=== PATIENT | female | born 1995 | race Asian ===

== ENCOUNTER 2024-10-09 16:32 | Emergency (ER) | payer OTHER, SELFPAY ==
[2024-10-09 16:49] VITALS: BP 118/71; PULSE 54; RESP 20; TEMP 37; O2SAT 100; BMI 20.6
--- NOTE | 2024-10-09 18:14 | ED.WOUNDLAC ---
HPI - Wound/Laceration General Chief Complaint: Wound/Laceration Stated Complaint: Cut first left digit with knife Time Seen by Provider: 10/09/24 18:03 Source: patient Mode of arrival: Ambulatory History of Present Illness HPI narrative: Patient is a 28-year-old female with no significant past medical history presenting for laceration to the left index finger, states that she was cutting an onion, states it is above her fingernail, states that she did wash it out with hot water and so prior to arrival, not complaining of any other injuries, patient states not up-to-date on tetanus, she states that this happened at around 4:00 pm, she denies any other symptoms at this time, not on any blood thinners Related Data Previous Rx's ?Medication ?Instructions ?Recorded cephalexin 500 mg capsule 500 mg PO Q6H 5 days #20 caps 10/09/24 Allergies Allergy/AdvReac Type Severity Reaction Status Date / Time chlorhexidine Allergy Intermediate Verified 10/09/24 16:49 Review of Systems Review of Systems Narrative: General: Denies fever, chills, weight loss HEENT: Denies headache, eye drainage, eye irritation, head trauma, sore throat, voice change Cardiovascular: Denies any chest pain, palpitations, tachycardia Respiratory: Denies any shortness of breath, cough, wheeze, stridor GI/: Denies any abdominal pain, nausea, vomiting, diarrhea, bright red blood per rectum, melanotic stools, urinary frequency, urinary retention, dysuria, hematuria MSK: Denies any joint pain, muscle pains, swelling Skin: Laceration to left index finger Neuro: Denies any headache, lightheadedness, dizziness, fainting, weakness Psych: Denies SI/HI Patient History Smoking Status: Current every day smoker Exam Narrative Exam Narrative: General: Cooperative, well-developed, not in acute distress HEENT: Normocephalic, atraumatic, PERRLA, normal sclera, eyelids normal Neck: Active full range of motion, atraumatic Chest: Normal to inspection, negative crepitus, no overlying erythema ecchymosis Respiratory: Normal respiratory effort, not in acute respiratory distress, clear to auscultation bilaterally negative cough, wheeze, tachypnea, rhonchi, rales Cardiology: Regular rate rhythm negative gallop, murmur, rubs GI/: No tenderness to palpation, soft, non rigid, normal to inspection, exam deferred MSK: Full active range of motion in all 4 extremities, atraumatic, no tenderness to palpation of any bony prominences Skin: 0.5 cm laceration superficially to the distal aspect of the left index finger, does not involve the nail bed Neuro: Alert awake oriented x3, moves all 4 extremities spontaneously, cranial nerves intact, able to answer all questions appropriately follows commands appropriately Psych: Cooperative, negative suicidal or homicidal ideations Initial Vital Signs Initial Vital Signs: Vital Signs Temperature 98.6 F 10/09/24 16:49 Pulse Rate 54 L 10/09/24 16:49 Respiratory Rate 20 10/09/24 16:49 Blood Pressure 118/71 10/09/24 16:49 Pulse Oximetry 100 10/09/24 16:49 Oxygen Delivery Method Room Air 10/09/24 16:49 Procedures Laceration Repair Laceration 1: Time of procedure: 18:23 Site: hand Side (If applicable): left Size (cm): 0.5 Description: linear Depth: simple, single layer Skin layer closed with: dermabond Course Vital Signs Vital signs: Vital Signs - 8 hr 10/09/24 16:49 Temperature 98.6 F Pulse Rate 54 L Respiratory Rate 20 Blood Pressure 118/71 Pulse Oximetry 100 Oxygen Delivery Method Room Air MDM - Wound/Laceration Differential Diagnosis Differential diagnosis: Likely laceration, abrasion and avulsion of skin MDM Narrative Medical decision making narrative: Patient is a 28-year-old female presenting for laceration of left index finger, at around 4:00 p.m. she was cutting an onion with a kitchen knife and cut the left index finger, at time of evaluation 0.5 cm laceration to the distal aspect of the left finger just above the finger nail bed but does not involve the fingernail bed, bleeding controlled not on any blood thinners patient had her tetanus shot updated, laceration was closed with Dermabond, she will be started prophylactically on antibiotics given it is on her hand. She was given strict return precautions verbalized understanding of this and agrees to being discharged home with outpatient follow up Discharge Plan Departure Patient Disposition: Home Clinical Impression: Laceration Instructions: DI for Laceration Repair-Skin Glue Activity Restrictions/Additional Instructions: Please follow up with your primary care doctor as needed Please read the discharge instructions sheet carefully and bring all papers to all doctor follow-up visits, as it may contain information that your doctor may want to see. Disease processes change and evolve, if your symptoms worsen or if you develop any new symptoms that are concerning to you please return for evaluation. Your evaluation today does not show any evidence of any life-threatening/serious illnesses requiring admission to the hospital or surgery. Please follow-up with your doctor for re-evaluation in approximately 1 day. Seek immediate medical attention for any worrisome symptoms. *If you do not have a primary care provider please contact the [facility] Resource line at [phone]. They will ask some questions about your medical history and help get you set up with a doctor in the community. Prescriptions: New cephalexin 500 mg capsule 500 mg PO Q6H 5 Days Qty: 20 0RF Stand Alone Forms: Patient Portal/API
[2024-10-09] MEDS: TET,DIPH,PERTUSS(ACELL),VAC/PF 0.5 ML SYRINGE IM (18:35)
[2024-10-09 18:49] VITALS: BP 103/66; PULSE 52; RESP 14; O2SAT 100
== END 2024-10-09 18:51 | disposition home or self-care (01) ==
PROVIDERS: Emergency Provider Student in an Organized Health Care Education/Training Program
DX: S61.211A Laceration without foreign body of left index finger without damage to nail, initial encounter (principal); W26.0XXA Contact with knife, initial encounter; Z23 Encounter for immunization
CPT/HCPCS: 12001; 90471; 99283; 90715